=== PATIENT | female | born 1950 | race Caucasian/White ===

== ENCOUNTER 2018-06-24 13:12 | Outpatient (CLI) | payer MEDICARE | END 2018-06-24 13:13 | disposition home or self-care (01) | LOC: BICMAMMO 13:12 | PROVIDERS: ATTEND Family Medicine | DX: Z12.31 Encounter for screening mammogram for malignant neoplasm of breast (principal); R92.1 Mammographic calcification found on diagnostic imaging of breast | CPT/HCPCS: 77063; 77067 ==

== ENCOUNTER 2023-08-11 13:44 | Emergency (ER) | payer MEDICARE ==
[2023-08-11] MEDS ORDERED: Ondansetron PF 4 MG/2 ML Vial ONE (16:05)
[2023-08-11] MEDS ORDERED: Morphine 4 MG/ML VIAL ONE (16:05)
[2023-08-11] MEDS ORDERED: HYDROcodone/Acetaminophen 7.5/325 mg Tablet ONE (18:08)
== END 2023-08-11 18:10 | disposition home or self-care (01) ==
LOC: ERS 13:44
DX: S82.832A Other fracture of upper and lower end of left fibula, initial encounter for closed fracture (principal); S90.31XA Contusion of right foot, initial encounter; I11.0 Hypertensive heart disease with heart failure; I50.9 Heart failure, unspecified; W23.1XXA Caught, crushed, jammed, or pinched between stationary objects, initial encounter; Z79.899 Other long term (current) drug therapy
CPT/HCPCS: 29515; 96374; 96375; J2270; J2405